=== PATIENT | female | born 1980 | race Two or more races ===

== ENCOUNTER → 2017-01-05 | Outpatient (REF) | payer BC, OTHER | LOC: M LAB REF 16:53 | PROVIDERS: ATTEND Obstetrics & Gynecology | DX: Z34.83 Encounter for supervision of other normal pregnancy, third trimester (principal) ==

== ENCOUNTER → 2017-01-10 | Outpatient (CLI) | payer OTHER ==
--- NOTE | 2017-01-10 14:54 | REP ---
Clinical: Growth evaluation. Comparison: 10/18/2016. Findings: Examination demonstrates a single live intrauterine in cephalic presentation. motion is identified by technologist. Placenta is noted anteriorly and grade one without evidence for placenta previa or abruption. Amniotic fluid volume is normal. Gestational age by first US 36 weeks 6 days with PAULETTE 02/01/2017. Gestational age by current measurements 35 weeks 4 days with PAULETTE 02/10/2017. FHR equals 153 beats per minute. BPD 8.6 cm 34 weeks 6 days HC 31.5 cm 35 weeks 3 days AC 35.3 cm 39 weeks 1 day FL 6.9 cm 35 weeks 3 days HC/AC ratio 0.89 Estimated weight 3194 grams ( 63rd percentile). Amniotic fluid index equals 18.3 cm. Umbilical cord SD ratio equals 2.53 Impression: Single live advanced gestation in cephalic presentation. Appropriate interval growth is appreciated. Amniotic fluid volume normal. Signed by Suhail Monk MD 01/10/2017 02:46 P
== END ==
LOC: M SMT 13:23
PROVIDERS: ATTEND Obstetrics & Gynecology
DX: O26.843 Uterine size-date discrepancy, third trimester (principal)

== ENCOUNTER → 2017-01-25 | Outpatient (CLI) | payer OTHER ==
--- NOTE | 2017-01-25 17:45 | REP ---
OB ULTRASOUND: Real-time sonographic evaluation of the gravid uterus is performed. There is a single living intrauterine gestation with estimated gestational age of 39 weeks, EDC 02/01/2017. Today's measurements indicate appropriate growth. BPD 89 mm = 35 weeks 5 days, less than 5th percentile. HC 318 mm = 35 weeks 5 days, less than 5th percentile. AC 361 mm = 40 weeks 0 days, 65th percentile. Femur length 72 mm = 36 weeks 6 days, 20th percentile. HC/AC ratio 0.88 is slightly below normal range of 0.9 to 1.09. Estimated weight 3443 grams, 51st percentile. heart rate is 131 beats per minute. Amniotic fluid within normal limit, MIKIE 21.5 within normal range of 7.2-22.7. SD ratio 2.18 within normal range of 1.6-2.6. RI 0.53. stomach, three-vessel cord and bladder are visualized and are grossly unremarkable. position vertex. Placenta is anterior with no previa. Signed by Danny Fernando MD 01/26/2017 04:55 P
== END ==
LOC: M SMT 15:07
PROVIDERS: ATTEND Obstetrics & Gynecology
DX: O26.843 Uterine size-date discrepancy, third trimester (principal)

== ENCOUNTER 2017-02-10 09:54 | Inpatient (IN) | payer OTHER ==
[~2017-02-10] VITALS: Ht 167.6 cm; Wt 125.0 kg
[2017-02-10] VITALS (8 sets, daily range): BP systolic 132–145; BP diastolic 60–86
[~2017-02-10 09:54] MED LIST: NITROFURANTOIN (MACROBID) 100 MG CAP PO SCH
[2017-02-10] MEDS ORDERED: PRENTAB9 PO (09:59)
[2017-02-10 10:54] LABS: MEAN CORPUSCULAR HEMOGLOBIN 27.4 pg (27.0-33.0); MEAN CORPUSCULAR HGB CONC 31.2 g/dl (32.0-36.5); MEAN CORPUSCULAR VOLUME 87.8 fl (80.0-96.0); WHITE BLOOD COUNT 12.8 K/mm3 (4.0-10.0)
[2017-02-10] MEDS ORDERED: miSOPROStol 50 MCG 1/2 TAB (S0191) PO SCH (11:00)
--- NOTE | 2017-02-10 12:10 | HPE ---
DATE OF ADMISSION: 02/10/2017 Nancy is a 36-year-old, 2, para 0-0-1-0, at 41-2/7 weeks gestation with an estimated date of confinement (EDC) of 02/01/2017 based on first trimester ultrasound. She presents to labor and delivery today for induction of labor due to post-term per consult with Dr. Seven Cornejo. She denies regular contractions, vaginal bleeding and leakage of fluid. Her fetus has been active. care initiated at [facility] in the first trimester. course complicated by advanced maternal age. She declined genetic screenings, positive history of MRSA. She did, however undergo three negative nasal cultures and there is no need for contact precautions. She is a smoker of approximately 10 cigarettes a day, obesity. PAST MEDICAL HISTORY: Seasonal allergies. Advanced maternal age. SURGERIES: None. FAMILY HISTORY: Leukemia, congenital heart disease, muscular dystrophy. SOCIAL HISTORY: The patient is single. However, the father of baby is at bedside and supportive. She is a smoker. She denies alcohol and drug use. No history of sexually transmitted infections. Denies history of abuse physical, sexual and emotional. ALLERGIES: To PREDNISONE. CURRENT MEDICATIONS: Include: - vitamin OBJECTIVE: Vital signs have not been recorded. As of this moment, she is alert and oriented times three. She is in no apparent distress, smiling and talkative. heart rate is 155. Moderate variability is difficult to trace due to maternal body habitus. There is no pattern of regular contractions. Her abdomen is gravid, cephalic presentation, 8.5-9 pounds, approximately 2388-6761 grams. Sterile vaginal exam: 1 cm dilated, 75% effaced, minus 3 station. ASSESSMENT: Intrauterine at 41-2/7, heart rate appears to be category 1, post term state. PLAN: Admit the patient to labor and delivery. Out of bed ad teresa. Clear liquid diet. Misoprostol 50 mcg by mouth every 4 hours for cervical ripening. Insert Duncan bulb with 40 mL of normal saline for mechanical cervical ripening. I did review risks to induction including failed induction, intolerance to labor , increased risk for section. The patient has had all of her questions answered and desires to proceed with induction. I do anticipate cervical ripening. [facility]
[2017-02-10] MEDS ORDERED: LR 1,000 ML IV SCH (16:33)
[2017-02-10] MEDS ORDERED: OXYTOCIN 30 UNITS IN 0.9% NaCl 500ML IV BAG (J2590) As Ordered ONE (16:35)
[2017-02-10] MEDS ORDERED: OXYTOCIN DRIP 30 UNITS in APPROPRIATE DILUENT 1 EA IV SCH (16:45)
[2017-02-11] MEDS ORDERED: BICITRA 30ML SOLN UDC As Ordered ONE (13:48)
[2017-02-11] MEDS ORDERED: BICITRA 30ML SOLN UDC PO ONE (14:00)
[2017-02-11] MEDS ORDERED: NALOXONE INJ 0.4 MG/1 ML VIAL (J2310) IV PRN ×2 (14:20)
[2017-02-11] MEDS ORDERED: METOCLOPRAMIDE INJ 10MG/2ML VIAL (J2765) IV PRN ×2 (14:20→15:45)
[2017-02-11] MEDS ORDERED: ONDANSETRON 4MG/2ML VIAL (J2405) IV PRN ×3 (14:20→15:45)
[2017-02-11] MEDS ORDERED: NALBUPHINE HCL 10 MG/ML AMP (J2300) IV PRN ×2 (14:20→15:45)
[2017-02-11] MEDS ORDERED: MORPHINE PRES-FREE INJ 10 MG/10 ML VIAL (J2274) As Ordered ONE (14:55)
[2017-02-11] MEDS ORDERED: OXYTOCIN INJ 10 UNITS/ML VIAL (J2590) As Ordered ONE (14:55)
[2017-02-11] MEDS ORDERED: ePHEDrine SULFATE 25 MG/5 ML(5MG/ML) SYRINGE As Ordered ONE (14:55)
[2017-02-11] MEDS ORDERED: PHENYLephrine HCL 500 MCG/5 ML (100MCG/ML) SYRINGE (J2370) As Ordered ONE (14:55)
[2017-02-11] MEDS ORDERED: ONDANSETRON 4MG/2ML VIAL (J2405) As Ordered ONE (14:55)
[2017-02-11] MEDS ORDERED: KETOROLAC 60 MG/2 ML VIAL (J1885) As Ordered ONE (14:55)
[2017-02-11] MEDS: LR 1,000 ML IV SCH ×2 (15:18→23:18)
[2017-02-11] MEDS ORDERED: MEASLES,MUMPS,RUBELLA VACCINE INJ (MMR-II) (90707) SC SCH (15:30)
[2017-02-11] MEDS ORDERED: RHOGAM 300 MCG (1500 IU) INJ (J2790) IM SCH (15:30)
[2017-02-11] MEDS ORDERED: DOCUSATE SODIUM 100 MG CAP PO PRN (15:30)
[2017-02-11] MEDS ORDERED: PERCOCET 5MG/325MG TAB PO PRN ×2 (15:30→15:45)
[2017-02-11] MEDS ORDERED: OXYTOCIN DRIP 30 UNITS in APPROPRIATE DILUENT 1 EA IV ONE (15:30)
[2017-02-11] MEDS ORDERED: MEPERIDINE INJ 25 MG/ML VIAL (J2175) IV PRN (15:45)
[2017-02-11] MEDS ORDERED: LR 1,000 ML IV SCH (15:45)
[2017-02-11] MEDS ORDERED: diphenhydrAMINE INJ 50MG/ML VIAL (J1200) IV PRN (15:45)
[2017-02-11] MEDS ORDERED: HYDROmorphone HCL 1 MG/ML SYRINGE (J1170) IV PRN (15:45)
[2017-02-11] MEDS ORDERED: fentaNYL 100 MCG/2 ML INJECTION (J3010) IV PRN (15:45)
[2017-02-11 17:30] VITALS: BP 117/67
[2017-02-11 18:00] VITALS: BP 144/67
[2017-02-11 18:55] VITALS: BP 119/65
[2017-02-11 19:58] VITALS: BP 114/60
[2017-02-11] MEDS: KETOROLAC 30 MG/ML VIAL (J1885) IV SCH (21:14)
[2017-02-11 21:51] VITALS: BP 110/53
[2017-02-12 01:42] VITALS: BP 119/62
[2017-02-12] MEDS: KETOROLAC 30 MG/ML VIAL (J1885) IV SCH ×3 (03:10→15:00)
[2017-02-12 05:36] VITALS: BP 132/74
--- NOTE | 2017-02-12 06:23 | RO ---
DATE OF PROCEDURE: 02/11/2017 PREPROCEDURE DIAGNOSIS: 41 plus weeks gestation, arrest of dilation. POSTPROCEDURE DIAGNOSIS: 41 plus weeks gestation, arrest of dilation. PROCEDURE: Primary low transverse section. SURGEON: Dr. Seven Cornejo YARD CONDUCTOR: Rayne Dean ANESTHESIA: Spinal. ESTIMATED BLOOD LOSS: 600 mL. FLUIDS: 2300 mL lactated ringers. URINE OUTPUT: 50 mL. FINDINGS: 8 pound 8 ounce female . Moderate meconium. Occiput posterior position. 3856 grams. Apgars 8 and 9. Normal uterus, fallopian tubes and ovaries. OPERATIVE SUMMARY: The patient was taken to the operating room where spinal anesthesia was induced. She was prepped and draped in sterile fashion in the supine position. A Duncan catheter was placed. A Pfannenstiel skin incision was made with the scalpel and carried through to the fascia. The fascia was nicked and extended. The fascia was dissected off the rectus muscles. The rectus muscles were divided in the midline. The peritoneal cavity was entered. A bladder flap was created. A curvilinear incision was made in the lower uterine segment until bulging membranes were noted. This was extended manually. Meconium was noted. The infant was delivered from the vertex position without difficulty. The infant cried spontaneously. The cord was doubly clamped and cut. The was handed off to the awaiting moisture meter reader. The placenta was expressed. The uterus was exteriorized and cleared of clots and debris. The uterine incision was closed with #0 Vicryl in a running locked fashion. A second imbricating layer of #0 Vicryl was placed. The uterus was placed back in the abdominal cavity. The peritoneum was closed with #2-0 Vicryl in a running fashion. The fascia was closed with #0 Vicryl in a running fashion. The subcutaneous tissue was irrigated and the deep layer was closed with #2-0 chromic. The skin was closed with #4-0 Monocryl subcuticular suture. Sponge, instrument and needle counts were correct. MTDD
[2017-02-12 06:41] LABS: MEAN CORPUSCULAR HEMOGLOBIN 28.3 pg (27.0-33.0); MEAN CORPUSCULAR HGB CONC 32.7 g/dl (32.0-36.5); MEAN CORPUSCULAR VOLUME 86.5 fl (80.0-96.0); RED CELL DISTRIBUTION WIDTH 14.9 % (11.5-14.5); WHITE BLOOD COUNT 9.4 K/mm3 (4.0-10.0)
[2017-02-12] MEDS: LR 1,000 ML IV SCH ×2 (07:18→15:18)
[2017-02-12] MEDS: PRENATAL VITAMIN TAB PO SCH (09:12)
[2017-02-12 10:00] VITALS: BP 126/72
[2017-02-12] MEDS ORDERED: OXYC1TAB23 PO (11:05)
[2017-02-12] MEDS: PERCOCET 5MG/325MG TAB PO PRN ×2 (13:56→20:43)
[2017-02-12 14:00] VITALS: BP 126/56
[2017-02-12 18:00] VITALS: BP 141/72
[2017-02-12 22:14] VITALS: BP 122/61
[2017-02-12] MEDS: IBUPROFEN 800 MG TAB PO SCH (22:48)
[2017-02-13] MEDS ORDERED: IBUP-1114 PO (06:49)
[2017-02-13] MEDS ORDERED: COLA100C PO (06:49)
[2017-02-13 07:02] VITALS: BP 134/83
[2017-02-13] MEDS ORDERED: IBUP800T23 PO (07:06)
--- NOTE | 2017-02-13 07:33 | DSES ---
DATE OF ADMISSION: 02/10/2017 DATE OF DISCHARGE: DISCHARGE DIAGNOSIS: Primary lower transverse section for arrest of dilation. DISCHARGE CONDITION: Stable. PROCEDURES PERFORMED WHILE IN THE HOSPITAL: 1. Spinal anesthesia. 2. Lower transverse section. HISTORY AND HOSPITAL COURSE: Ms. Tubbs is a 36-year-old 2, para 0 who presented at 41 weeks 2 days estimated gestational age for induction of labor. Labor was started and she eventually arrested at 4 cm dilation and remained that way for several hours and underwent uncomplicated section productive of a live born female infant, 8 and 9, weight 3856 grams, 8 pounds, 8 ounces. Her estimated blood loss for the surgery was 600 mL. She did well postoperatively. By postoperative day #2 had met all discharge criteria and was discharged home in stable condition. PHYSICAL EXAMINATION ON DATE OF DISCHARGE: Her vital signs are stable. She was afebrile. General appearance: Well appearing. No acute distress. Abdomen: Soft, nontender. Fundus was firm below umbilicus. Extremities: Negative for calf tenderness. DISCHARGE MEDICATION: She was discharged home with: - ibuprofen - Percocet She received Depo-Provera before she left the hospital. DISCHARGE INSTRUCTIONS: 1. She was instructed to remain on pelvic rest for 6 weeks. 2. Make a 2 week incision check as well as 6 week check. 3. Report severe pain, heavy vaginal bleeding, fever, incisional issues or breast feeding issues.
[2017-02-13] MEDS: IBUPROFEN 800 MG TAB PO SCH (07:39)
[2017-02-13] MEDS: PRENATAL VITAMIN TAB PO SCH (07:41)
[2017-02-13] MEDS ORDERED: medroxyPROGESTERone ACET IM SUSP 150 MG/ML VIAL (J1050) IM ONE (08:00)
== END 2017-02-13 08:25 | disposition home or self-care (01) | DRG 766 ==
LOC: M LDI 09:54 → M OBS 02-11 17:42
PROVIDERS: ADMIT Advanced Practice Midwife; ATTEND Specialist
PROC: 3E033VJ Introduction of Other Hormone into Peripheral Vein, Percutaneous Approach (ICD-10-PCS; 2017-02-10)
PROC: 10907ZC Drainage of Amniotic Fluid, Therapeutic from Products of Conception, Via Natural or Artificial Opening (ICD-10-PCS; 2017-02-11)
PROC: 10D00Z1 Extraction of Products of Conception, Low, Open Approach (ICD-10-PCS; principal; 2017-02-11 14:41)
DX: O48.0 Post-term pregnancy (principal); O99.334 Smoking (tobacco) complicating childbirth; Z3A.41 41 weeks gestation of pregnancy; F17.210 Nicotine dependence, cigarettes, uncomplicated; O99.214 Obesity complicating childbirth; E66.9 Obesity, unspecified; O62.0 Primary inadequate contractions; Z37.0 Single live birth; Z68.38 Body mass index [BMI] 38.0-38.9, adult

== ENCOUNTER → 2017-04-20 | Outpatient (CLI) | payer OTHER ==
[~2017-04-20] MED LIST changes: +COLA100C3 PO; +IBUP-1114 PO; +IBUP800T23 PO; -NITROFURANTOIN (MACROBID) 100 MG CAP PO SCH; +OXYC1TAB23 PO; +PRENTAB9 PO
--- NOTE | 2017-04-20 14:42 | REP ---
MRA BRAIN WITHOUT CONTRAST: HISTORY: Fracture of aneurysm. 3D [id number] MR angiography was performed at the level of the wiyot of [place]. There is no aneurysm, arteriovenous malformation, or atherosclerotic lesion. Major intracranial vessels are patent. The vertebral arteries are equal in size. IMPRESSION: Normal MRA brain. Signed by Seven Funez MD 04/20/2017 02:47 P
== END ==
LOC: M RAD 11:03
PROVIDERS: ATTEND Family Medicine
DX: Z09 Encounter for follow-up examination after completed treatment for conditions other than malignant neoplasm (principal); Z87.81 Personal history of (healed) traumatic fracture; Z82.49 Family history of ischemic heart disease and other diseases of the circulatory system

== ENCOUNTER → 2018-02-08 | Outpatient (REF) | payer OTHER ==
[2018-02-08 13:03] LABS: ALBUMIN 3.5 GM/DL (3.2-5.2); ALBUMIN/GLOBULIN RATIO 0.97 (1.00-1.93); ALKALINE PHOSPHATASE 74 U/L (45-117); ALT/SGPT 41 U/L (12-78); ANION GAP 6 MEQ/L (8-16); AST/SGOT 31 U/L (7-37); BILIRUBIN,TOTAL 0.6 MG/DL (0.2-1.0); BLOOD UREA NITROGEN 14 MG/DL (7-18); CALCIUM LEVEL 8.5 MG/DL (8.5-10.1); CARBON DIOXIDE LEVEL 28 MEQ/L (21-32); CHLORIDE LEVEL 109 MEQ/L (98-107); GLOMERULAR FILTRATION RATE > 60.0 (>60); GLUCOSE, FASTING 120 MG/DL (70-100); POTASSIUM SERUM 4.3 MEQ/L (3.5-5.1); SODIUM LEVEL 143 MEQ/L (136-145); THYROXINE (T4) 12.8 UG/DL (4.5-12.0); TOTAL PROTEIN 7.1 GM/DL (6.4-8.2)
[2018-02-08 14:04] LABS: TOTAL T3 183.8 NG/DL (60.0-181.0)
== END ==
LOC: M SFHCCLAY 09:21
DX: R03.0 Elevated blood-pressure reading, without diagnosis of hypertension (principal); R63.5 Abnormal weight gain

== ENCOUNTER → 2018-09-03 | Outpatient (REF) | payer OTHER | LOC: M LAB REF 16:58 | DX: N76.4 Abscess of vulva (principal) ==

== ENCOUNTER → 2019-12-23 | Outpatient (REF) | payer OTHER ==
[~2019-12-23] MED LIST changes: -COLA100C3 PO; +COLA100C5 PO; +IBUP1TAB7 PO; -IBUP800T23 PO
[2019-12-23 17:12] LABS: BLOOD UREA NITROGEN 12 MG/DL (7-18); CALCIUM LEVEL 8.5 MG/DL (8.5-10.1); CARBON DIOXIDE LEVEL 28 MEQ/L (21-32); CHLORIDE LEVEL 110 MEQ/L (98-107); GLOMERULAR FILTRATION RATE > 60.0 (>60); GLUCOSE, FASTING 110 MG/DL (70-100); POTASSIUM SERUM 3.9 MEQ/L (3.5-5.1); SODIUM LEVEL 140 MEQ/L (136-145)
[2019-12-23 17:13] LABS: ALBUMIN 3.5 GM/DL (3.2-5.2); ALT/SGPT 20 U/L (12-78); BILIRUBIN,TOTAL 0.6 MG/DL (0.2-1.0); CHOLESTEROL LEVEL 204 MG/DL (<200); CHOLESTEROL RISK RATIO 4.744 (<5); HDL CHOLESTEROL 43 MG/DL (>40); LDL CHOLESTEROL 137 MG/DL (<100); NON-HDL-C 161 MG/DL; TOTAL PROTEIN 7.2 GM/DL (6.4-8.2); TRIGLYCERIDES LEVEL 120 MG/DL (<150)
[2019-12-23 17:16] LABS: HEMOGLOBIN A1c 6.1 %
== END ==
LOC: M SFHCCLAY 11:28
PROVIDERS: ATTEND Family Medicine
DX: R73.9 Hyperglycemia, unspecified (principal); R03.0 Elevated blood-pressure reading, without diagnosis of hypertension

== ENCOUNTER → 2019-12-23 | Outpatient (CLI) | payer OTHER ==
--- NOTE | 2019-12-24 03:55 | REP ---
Clinical: Cervical pain and radiculopathy . Technique: AP, lateral, flexion/extension, bilateral oblique, and open-mouth views. Findings: Alignment and lordosis is maintained. There is no evidence for acute fracture / compression injury or subluxation. No significant degenerative changes are appreciated. Oblique views demonstrate patent neural foramen. Open mouth view demonstrates normal C1-C2 articulation and odontoid process. Impression: Normal cervical spine series. Electronically Signed by Suhail Monk MD 12/24/2019 03:45 A
== END ==
LOC: M CLY 11:36
PROVIDERS: ATTEND Family Medicine
DX: M54.12 Radiculopathy, cervical region (principal)

== ENCOUNTER → 2021-03-18 | Outpatient (REF) | payer OTHER ==
[2021-03-18 14:02] LABS: HEMOGLOBIN A1c 6.6 %
[2021-03-18 14:07] LABS: CHOLESTEROL RISK RATIO 4.478 (<5); FREE T4 1.02 NG/DL (0.76-1.46); THYROID STIMULATING HORMONE 2.16 uIU/ML (0.358-3.740)
== END ==
LOC: M PLALAB 10:40
PROVIDERS: ATTEND Obstetrics & Gynecology
DX: Z01.419 Encounter for gynecological examination (general) (routine) without abnormal findings (principal); R87.610 Atypical squamous cells of undetermined significance on cytologic smear of cervix (ASC-US)

== ENCOUNTER → 2021-04-08 | Outpatient (CLI) | payer OTHER ==
--- NOTE | 2021-04-08 11:19 | REPMRS ---
Patient History The patient states she had a clinical breast exam in March 2021. Patient had first child at age 37. Family history of prostate cancer at age 54 in father. Taking hormonal contraceptives for 3 years. No breast complaints today Patient signed the MRS sheet 1st covid vaccine 02/17/21-right arm-Moderna 2nd covid vaccine 03/21/21-right arm Patient Identification Verified Patient denied No [facility] [facility] Woman Screen Mammo: April 08, 2021 - Exam #: [id number] Bilateral CC and MLO view(s) were taken. Technologist: Aissatou Tse, Technologist No prior studies available for comparison. FINDINGS: There are scattered fibroglandular densities. The Volpara volumetric breast density category is: B. There is no evidence of dominant mass, architectural distortion, or grouped microcalcification typical of malignancy. 3-D tomosynthesis shows no additional findings. Assessment: BI-RADS/ACR category 1 mammogram. Negative Mammogram. Recommendation Routine screening mammogram of both breasts in 1 year (for women over age 40). This patient's [facility] Lifetime Breast Cancer RIsk is estimated at 16.3 %. This mammogram was interpreted with the aid of an FDA-approved computer-aided dectection system. Electronically Signed By: Henok Rivera MD 04/08/21 [id number]
== END ==
LOC: M WHC 10:11
PROVIDERS: ATTEND Obstetrics & Gynecology
DX: Z12.31 Encounter for screening mammogram for malignant neoplasm of breast (principal); Z92.0 Personal history of contraception

== ENCOUNTER → 2021-04-22 | Outpatient (CLI) | payer OTHER ==
[~2021-04-22] MED LIST changes: +ACET32TAB PO; +IBUP80TA PO; +PERC5TAB12 PO; +[UNRECOGNIZED DRUG - OTHER] PO; +excedrin PO
== END ==
LOC: M LABSMTC 09:49
PROVIDERS: ATTEND Anesthesiology
DX: Z01.818 Encounter for other preprocedural examination (principal); Z20.822 Contact with and (suspected) exposure to COVID-19

== ENCOUNTER 2021-04-27 06:05 | Day surgery (SDC) | payer OTHER ==
[~2021-04-27] VITALS: Ht 165.1 cm; Wt 118.3 kg
[~2021-04-27 06:05] MED LIST changes: -IBUP80TA PO; +LR 1,000 ML IV ONE; -PERC5TAB12 PO
[2021-04-27] MEDS ORDERED: ACETAMINOPHEN 1000MG 100ML IV BTL (OFIRMEV) (J0131 PER 10MG) As Ordered ONE (06:48)
[2021-04-27] MEDS ORDERED: MIDAZOLAM INJ 2MG/2ML VIAL (J2250 PER 1MG) As Ordered ONE (06:49)
[2021-04-27] MEDS ORDERED: fentaNYL 100 MCG/2 ML INJECTION (J3010) As Ordered ONE ×2 (06:49→08:15)
[2021-04-27] MEDS ORDERED: PHENYLephrine 500MCG 5ML (100MCG/ML) SYRINGE As Ordered ONE (06:49)
[2021-04-27] MEDS ORDERED: ONDANSETRON 4MG/2ML VIAL As Ordered ONE (06:50)
[2021-04-27] MEDS ORDERED: LIDOCAINE 2% 100MG/5ML SDV (FOR ANES.) As Ordered ONE (06:50)
[2021-04-27] MEDS ORDERED: SUGAMMADEX SODIUM 500 MG/5 ML VIAL (BRIDION) As Ordered ONE (06:50)
[2021-04-27] MEDS ORDERED: dexameTHASONE 4 MG/ML 1ML VIAL (J1100 PER 1MG) As Ordered ONE (06:50)
[2021-04-27] MEDS ORDERED: propofoL 200 MG/20 ML VIAL As Ordered ONE (06:50)
[2021-04-27] MEDS ORDERED: ePHEDrine SULFATE 25 MG/5 ML(5MG/ML) SYRINGE As Ordered ONE (06:50)
[2021-04-27] MEDS ORDERED: ROCURONIUM BROMIDE 50 MG/5 ML VIAL As Ordered ONE (06:50)
[2021-04-27] MEDS ORDERED: BUPIVACAINE HCL 0.25% 10ML VIAL As Ordered ONE (07:10)
[2021-04-27 07:27] LABS: HCG, SERUM QUALITATIVE NEGATIVE (NEGATIVE)
[2021-04-27] MEDS ORDERED: IBUP80TA PO (07:34)
[2021-04-27] MEDS ORDERED: COLA100C5 PO (07:34)
[2021-04-27] MEDS ORDERED: PERC5TAB12 PO (07:34)
[2021-04-27] MEDS ORDERED: LR 1,000 ML IV SCH (09:15)
[2021-04-27] MEDS ORDERED: ONDANSETRON 4MG/2ML VIAL IV PRN (09:15)
[2021-04-27] MEDS ORDERED: oxyCODONE 5MG TAB PO PRN (09:15)
[2021-04-27] MEDS ORDERED: fentaNYL 100 MCG/2 ML INJECTION (J3010) IV PRN (09:15)
[2021-04-27 10:20] VITALS: BP 155/80
--- NOTE | 2021-04-27 11:52 | RO ---
OPERATIVE NOTE DATE OF OPERATION: 04/27/2021 PREOPERATIVE DIAGNOSIS: Satisfied parity. POSTOPERATIVE DIAGNOSIS: Satisfied parity. OPERATION PERFORMED: Laparoscopic bilateral salpingectomy. SURGEON: Celina Wiggins MD [employer] WORKER: None CLINICAL SERVICE: Gynecology ANESTHESIA: MATERIAL FORWARDED TO THE LABORATORY: Bilateral fallopian tubes. DESCRIPTION OF FINDINGS: The uterus sounded to 8 cm. Laparoscopic findings included a normal-appearing uterus, fallopian tubes, ovaries and liver edge. There was a large sheet of omentum that obscured the posterior cul-de-sac to some degree but I was able to see was ovarian fossae and immediately behind the uterus and in the anterior cul-de-sac, there were no obvious endometriosis lesions. INFECTION CLASSIFICATION: 2. ESTIMATED BLOOD LOSS: 5 mL. URINE OUTPUT: 50 mL of clear, yellow urine. IV FLUIDS: 1200 mL of lactated Ringer's. INDICATION FOR OPERATION: Nancy is a 40-year-old -0-1-1 having satisfied parity. She has been taking an oral contraceptive pill and we had discussed her desire for permanent sterilization. She has a history of a prior section, recent diagnosis of type 2 diabetes being addressed with lifestyle changes, and her BMI is 43. DESCRIPTION OF PROCEDURE: After obtaining informed consent, the patient was taken to the operating room. General endotracheal anesthesia was established. She was placed in low lithotomy position. She was prepped and draped in the usual sterile fashion. She was placed in Trendelenburg position. Duncan catheter was placed. Creede speculum was placed in the vagina with visualization of the cervix, and the anterior lip of the cervix was grasped with a single-toothed tenaculum. The uterus sounded to 8 cm and then a Hook uterine manipulator was placed through the cervix into the uterus. The tenaculum was removed, the site hemostasis observed, and the bivalve speculum was removed. The patient was taken out of Trendelenburg position. A 5-mm incision was made in the infraumbilical fold beneath the subcutaneous tissue after anesthetizing with 0.25% Marcaine. Erika clamp was used to spread the subcutaneous tissue. Lower abdominal wall was manually grabbed and lifted up with the aid of towel clamps. After the trocar was placed at a 90-degree angle and the laparoscope was advanced through the port and intraabdominal placement was confirmed with no injury noted below the point of entry. Continuous flow carbon dioxide began to establish a pneumoperitoneum at 15 mmHg. An initial survey revealed large omentum obscuring the pelvic organs but the liver edge was normal in appearance. At that point, I made two 5-mm incisions on the left side of the abdomen, one in the lower left quadrant and one in the upper left quadrant. Both of these were anesthetized with 0.25% Marcaine prior, and a 5-mm trocar was placed under direct visualization at those sites. Pelvic survey was then conducted and the anterior cul-de-sac was normal in appearance as well as the uterus itself. The left and right fallopian tubes, round ligaments, broach ligament and ovaries were observed with normal appearance but there was a large sheet of omentum that I could not completely remove from the posterior cul-de-sac. What I was able to see underneath the uterus was normal healthy tissue and the ovarian fossae were normal in appearance. I was not able to observe the appendix. At that point, I performed the salpingectomy. First, on the right side using a grasper to lift up the fallopian tube and I used a LigaSure device to undermine just underneath the fallopian tube coagulating and then cutting along the full length of the fallopian tube all the way to the uterus and then it was excised and that fallopian tube was pulled up out of the 5-mm trocar and will be sent to pathology. The exact same procedure was done on the left side and that fallopian tube was also removed to send. There was complete hemostasis noted at both sites and, at that point, The procedure was terminated. The ports on the left side of the abdomen were removed under direct visualization and observed to be hemostatic. The pneumoperitoneum was released prior to removal of the third port. Incisions were then reapproximated with 4-0 Monocryl and Dermabond. All instruments were removed from the vagina. The patient was returned to supine position. All counts were correct times two. She tolerated the procedure well and was awakened from general anesthesia and taken to the recovery room in stable condition.
== END 2021-04-27 10:25 | disposition home or self-care (01) ==
LOC: M SDC 06:05
PROVIDERS: ATTEND Obstetrics & Gynecology
DX: Z30.2 Encounter for sterilization (principal); Z88.0 Allergy status to penicillin; R73.03 Prediabetes; R51.9 Headache, unspecified; F17.218 Nicotine dependence, cigarettes, with other nicotine-induced disorders; F12.10 Cannabis abuse, uncomplicated; Z79.899 Other long term (current) drug therapy
CPT/HCPCS: 36415; 58661; 84703; 85014; 85018; 86850; 86900; 86901; 88302; J0131; J1100; J2250; J2370; J2405; J3010

== ENCOUNTER → 2021-07-07 | Outpatient (CLI) | payer OTHER ==
[~2021-07-07] MED LIST changes: +IBUP80TA PO; -LR 1,000 ML IV ONE; +PERC5TAB12 PO
[2021-07-07 16:05] LABS: ALBUMIN 3.6 GM/DL (3.2-5.2); ALT/SGPT 104 U/L (12-78); BILIRUBIN,TOTAL 0.9 MG/DL (0.2-1.0); BLOOD UREA NITROGEN 13 MG/DL (7-18); CALCIUM LEVEL 8.9 MG/DL (8.5-10.1); CARBON DIOXIDE LEVEL 27 MEQ/L (21-32); CHLORIDE LEVEL 110 MEQ/L (98-107); CHOLESTEROL LEVEL 225 MG/DL (<200); CHOLESTEROL RISK RATIO 5.113 (<5); CREATININE FOR GFR 0.82 MG/DL (0.55-1.30); GLOMERULAR FILTRATION RATE > 60.0 (>58); GLUCOSE, FASTING 123 MG/DL (70-100); HDL CHOLESTEROL 44 MG/DL (>40); LDL CHOLESTEROL 155 MG/DL (<100); NON-HDL-C 181 MG/DL; POTASSIUM SERUM 4.2 MEQ/L (3.5-5.1); SODIUM LEVEL 141 MEQ/L (136-145); TOTAL PROTEIN 7.3 GM/DL (6.4-8.2); TRIGLYCERIDES LEVEL 130 MG/DL (<150)
[2021-07-07 16:06] LABS: HEMOGLOBIN A1c 6.6 %
== END ==
LOC: M PLALAB 12:58
PROVIDERS: ATTEND Family Medicine
DX: E78.2 Mixed hyperlipidemia (principal); E11.9 Type 2 diabetes mellitus without complications

== ENCOUNTER → 2021-12-06 | Outpatient (CLI) | payer OTHER ==
[2021-12-06 14:54] LABS: ALBUMIN 3.5 GM/DL (3.2-5.2); ALT/SGPT 99 U/L (12-78); BILIRUBIN,TOTAL 0.5 MG/DL (0.2-1.0); BLOOD UREA NITROGEN 11 MG/DL (7-18); CALCIUM LEVEL 8.8 MG/DL (8.5-10.1); CARBON DIOXIDE LEVEL 30 MEQ/L (21-32); CHLORIDE LEVEL 108 MEQ/L (98-107); CHOLESTEROL LEVEL 206 MG/DL (<200); CHOLESTEROL RISK RATIO 4.291 (<5); CREATININE FOR GFR 0.83 MG/DL (0.55-1.30); GLOMERULAR FILTRATION RATE > 60.0 (>58); GLUCOSE, FASTING 121 MG/DL (70-100); HDL CHOLESTEROL 48 MG/DL (>40); LDL CHOLESTEROL 143 MG/DL (<100); NON-HDL-C 158 MG/DL; POTASSIUM SERUM 4.5 MEQ/L (3.5-5.1); SODIUM LEVEL 142 MEQ/L (136-145); TRIGLYCERIDES LEVEL 75 MG/DL (<150)
[2021-12-06 16:18] LABS: HEMOGLOBIN A1c 6.7 %
== END ==
LOC: M PLALAB 11:41
PROVIDERS: ATTEND Family Medicine
DX: E78.2 Mixed hyperlipidemia (principal); E11.9 Type 2 diabetes mellitus without complications

== ENCOUNTER 2024-01-31 11:58 | Emergency (ER) | payer OTHER ==
[~2024-01-31] VITALS: Ht 165.1 cm; Wt 110.9 kg
[2024-01-31 12:01] VITALS: BP 158/99; TEMP 96.7; O2SAT 99
[2024-01-31] MEDS ORDERED: VALS1TAB66 PO (12:19)
[2024-01-31] MEDS ORDERED: XALA0.007 OP (12:19)
[2024-01-31] MEDS ORDERED: SERT-141 PO (12:19)
[2024-01-31] MEDS ORDERED: ELIQ5TAB PO (12:19)
[2024-01-31] MEDS ORDERED: ATOR40TA75 PO (12:19)
[2024-01-31] MEDS ORDERED: HYDR12.55 PO (12:19)
[2024-01-31] MEDS ORDERED: MULT1TAB8 PO (12:19)
[2024-01-31] MEDS ORDERED: FLUT15.820 NARES (12:19)
[2024-01-31 13:11] LABS: BASO # 0.1 10^3/uL (0.0-0.2); BASO % 0.7 % (0.0-1.0); EOS # 0.2 10^3/uL (0.0-0.5); EOS % 1.8 % (0.0-3.0); HEMOGLOBIN 13.6 g/dl (12.0-15.5); LYMPH % 24.2 % (24.0-44.0); MEAN CORPUSCULAR HEMOGLOBIN 30.2 pg (27.0-33.0); MEAN CORPUSCULAR HGB CONC 33.2 g/dl (32.0-36.5); MEAN CORPUSCULAR VOLUME 90.9 fl (80.0-96.0); MONO # 0.4 10^3/uL (0.0-0.8); MONO % 4.6 % (2.0-8.0); NEUTROPHILS # 5.6 10^3/uL (1.5-8.5); NEUTROPHILS % 68.5 % (36.0-66.0); PLATELET COUNT, AUTOMATED 221 10^3/uL (150-450); RED BLOOD COUNT 4.51 10^6/uL (4.00-5.40); WHITE BLOOD COUNT 8.2 10^3/uL (4.0-10.0)
[2024-01-31 13:34] LABS: APPEARANCE, URINE HAZY (CLEAR); BACTERIA, URINE AUTO NEGATIVE (NEGATIVE); BILIRUBIN, URINE AUTO NEGATIVE (NEGATIVE); BLOOD, URINE BLOOD NEGATIVE (NEGATIVE); COLOR, URINE YELLOW (YELLOW); GLUCOSE, URINE (UA) AUTO NEGATIVE (NEGATIVE); KETONE, URINE AUTO NEGATIVE (NEGATIVE); LEUKOCYTE ESTERASE, URINE AUTO NEGATIVE (NEGATIVE); NITRITE, URINE AUTO NEGATIVE (NEGATIVE); PROTEIN, URINE AUTO NEGATIVE (NEGATIVE); RBC, URINE AUTO 2 /HPF (0-3); SPECIFIC GRAVITY URINE AUTO 1.024 (1.002-1.035); SQUAMOUS EPITHELIAL CELL UR AU 8 /HPF (0-6); UROBILINOGEN, URINE AUTO 0.2 mg/dL (0.0-2.0); WBC, URINE AUTO 1 /HPF (0-3)
[2024-01-31 13:35] LABS: ALBUMIN 3.4 G/DL (3.2-5.2); ALKALINE PHOSPHATASE 86 U/L (46-116); ALT/SGPT 34 U/L (7.0-40); AST/SGOT 21 U/L (<34); BILIRUBIN,DIRECT 0.3 MG/DL (<0.4); BILIRUBIN,TOTAL 0.9 MG/DL (0.3-1.2); BLOOD UREA NITROGEN 18 MG/DL (9-23); CALCIUM LEVEL 8.5 MG/DL (8.5-10.1); CARBON DIOXIDE LEVEL 28 MMOL/L (20-31); CHLORIDE LEVEL 107 MMOL/L (98-107); CREATININE FOR GFR 0.74 MG/DL (0.55-1.30); GLOMERULAR FILTRATION RATE > 60.0 (>58); GLUCOSE, FASTING 217 MG/DL (60-100); POTASSIUM SERUM 3.7 MMOL/L (3.5-5.1); SODIUM LEVEL 139 MMOL/L (136-145); TOTAL PROTEIN 6.6 G/DL (5.7-8.2)
== END 2024-01-31 14:38 | disposition left against medical advice (07) ==
LOC: M ED 11:58
DX: I10 Essential (primary) hypertension (principal); Z53.9 Procedure and treatment not carried out, unspecified reason; E11.9 Type 2 diabetes mellitus without complications; Z88.0 Allergy status to penicillin

== ENCOUNTER → 2024-02-07 | Outpatient (REF) | payer OTHER ==
[~2024-02-07] MED LIST changes: +ATOR40TA75 PO; +ELIQ5TAB PO; +FLUT15.820 NARES; +HYDR12.55 PO; +MULT1TAB8 PO; +SERT-141 PO; +VALS1TAB66 PO; +XALA0.007 OP
[2024-02-07 18:15] LABS: CHOLESTEROL RISK RATIO 4.53 (<5); HDL CHOLESTEROL 39.5 MG/DL (>40); LDL CHOLESTEROL 120.1 MG/DL (<100); NON-HDL-C 139.5 MG/DL
[2024-02-07 18:17] LABS: FREE T4 1.07 NG/DL (0.89-1.76)
[2024-02-07 18:18] LABS: THYROID STIMULATING HORMONE 1.148 uIU/ML (0.55-4.78)
[2024-02-07 18:20] LABS: TOTAL T3 160.8 NG/DL (60.0-181.0)
[2024-02-07 18:33] LABS: HEMOGLOBIN A1c 6.6 % (4.0-6.0)
== END ==
LOC: M SFHCCLAY 11:47
PROVIDERS: ATTEND Family Medicine
DX: E11.9 Type 2 diabetes mellitus without complications (principal); E78.2 Mixed hyperlipidemia; R03.0 Elevated blood-pressure reading, without diagnosis of hypertension

== ENCOUNTER → 2025-07-04 | Outpatient (CLI) | payer OTHER ==
[2025-07-04 11:59] LABS: PLATELET COUNT, AUTOMATED 225 10^3/uL (150-450)
[2025-07-04 12:13] LABS: ESTIMATED AVERAGE GLUCOSE 151.0 MG/DL (60-110)
[2025-07-04 12:33] LABS: ALT/SGPT 38 U/L (7.0-40); AST/SGOT 31 U/L (<34); CALCIUM LEVEL 8.4 MG/DL (8.5-10.1); CARBON DIOXIDE LEVEL 28 MMOL/L (20-31); CHLORIDE LEVEL 110 MMOL/L (98-107); CHOLESTEROL LEVEL 199 MG/DL (<200); CHOLESTEROL RISK RATIO 4.60 (<5); CREATININE FOR GFR 0.78 MG/DL (0.55-1.30); GLOMERULAR FILTRATION RATE > 90.0 (>58); LDL CHOLESTEROL 141.8 MG/DL (<100); NON-HDL-C 155.8 MG/DL; POTASSIUM SERUM 4.2 MMOL/L (3.5-5.1); SODIUM LEVEL 146 MMOL/L (136-145); TRIGLYCERIDES LEVEL 70 MG/DL (<150)
== END ==
LOC: M LAB 11:07
PROVIDERS: ATTEND Family Medicine
DX: E78.2 Mixed hyperlipidemia (principal); E11.9 Type 2 diabetes mellitus without complications; R03.0 Elevated blood-pressure reading, without diagnosis of hypertension